=== PATIENT | female | born 1995 | race Caucasian/White ===

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

== ENCOUNTER → 2017-05-14 | Outpatient (CLI) | payer BC | END | disposition home or self-care (01) | LOC: C.PATHSPEC 14:43 | PROVIDERS: ATTEND Physician Assistant | DX: L91.8 Other hypertrophic disorders of the skin (principal) ==

== ENCOUNTER 2018-03-27 14:48 | Emergency (ER) | payer BC, OTHER ==
[~2018-03-27] VITALS: Ht 152.4 cm; Wt 42.9 kg
[2018-03-27] MEDS ORDERED: SODIUM CHLORIDE 0.9% 1000ML 1,000 ML IV STA (15:10)
[2018-03-27 15:18] LABS: BASO % 0.5 %; BASO ABS # 0.04 K/uL (0-0.2); EOS % 4.1 %; EOS ABS # 0.31 K/uL (0-0.5); HEMOGLOBIN 14.9 g/dL (12.0-16.0); IG# 0.01 K/uL (0.00-0.02); LYMPH % 27.5 %; LYMPH ABS # 2.09 K/uL (1.2-3.4); MEAN CELL VOLUME 90.9 fL (80-100); MEAN CORPUSCULAR HEMOGLOBIN 30.8 pg (25-34); MEAN CORPUSCULAR HGB CONC 33.9 g/dl (32-36); MEAN PLATELET VOLUME 11.5 fL (7.4-10.4); MONO % 6.3 %; MONO ABS # 0.48 K/uL (0.11-0.59); NEUT % 61.5 %; NEUT ABS # 4.68 K/uL (1.4-6.5); PLATELET COUNT 188 K/uL (130-400); RED CELL DISTRIBUTION WIDTH CV 12.4 % (11.5-14.5); RED CELL DISTRIBUTION WIDTH SD 41.2 fL (36.4-46.3); WHITE BLOOD COUNT 7.61 K/uL (4.8-10.8)
[2018-03-27 15:38] VITALS: Ht 152.4 cm; Wt 42.9 kg
[2018-03-27 15:47] LABS: ALBUMIN 4.5 gm/dl (3.4-5.0); ALKALINE PHOSPHATASE 57 U/L (45-117); ALT/SGPT 21 U/L (12-78); AST/SGOT 17 U/L (15-37); BLOOD UREA NITROGEN 10 mg/dl (7-18); CALCIUM 9.5 mg/dl (8.5-10.1); CARBON DIOXIDE 26 mmol/L (21-32); CREATININE 0.83 mg/dl (0.60-1.20); GLUCOSE 98 mg/dl (70-99); POTASSIUM 3.1 mmol/L (3.5-5.1); SODIUM 139 mmol/L (136-145); TOTAL PROTEIN 8.5 gm/dl (6.4-8.2)
--- NOTE | 2018-03-27 15:59 | DIAGNOSTIC IMAGING REPORT ---
SINGLE VIEW CHEST CLINICAL HISTORY: Weakness. Change in mental status. FINDINGS: An AP, portable, upright chest radiograph is compared to study dated 09/27/2016. The examination is degraded by portable technique and patient rotation. The cardiomediastinal silhouette is unremarkable. The lungs and pleural spaces are clear. No pneumothorax is seen. The bony thorax is grossly intact. IMPRESSION: No active disease in the chest. Electronically signed by: Que Conroy M.D. 03/27/2018 3:58 PM Dictated Date/Time: 03/27/2018 3:58 PM
[2018-03-27] MEDS ORDERED: POTASSIUM CHLORIDE 10 MEQ TABCR PO STA (16:27)
[2018-03-27] MEDS ORDERED: ONDA4TAB10 SL (16:38)
[2018-03-27] MEDS ORDERED: BIOT1CAP8 PO (16:48)
[2018-03-27 16:58] VITALS: BP 98/74; PULSE 88; TEMP 36.7; O2SAT 100
--- NOTE | 2018-03-27 18:13 | EMERGENCY ROOM VISIT NOTE ---
History Report prepared by Amada: Jeanne Moya Under the Supervision of: Dr. Adam Cowan D.O. First contact with patient: 15:02 Chief Complaint: NAUSEA Stated Complaint: NAUSEA, LIGHT-HEADED, DIZZY History of Present Illness The patient is a 22 year old female who presents to the Emergency Room with complaints of sudden nausea starting 30 minutes ago. 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 She reports that right after she had blurry vision and muffled hearing. She reports that she felt like she was going to pass out so she went to the restroom and called her dad to come get her. The patient states that this has happened to her 5 times before and it was attributed to low blood pressure. The patient notes that she has been eating and drinking normally today. The patient denies vomiting and recent illness. Source of History: patient Onset: 30 minutes ago Position: abdomen Quality: other (nausea) Timing: other (sudden) Associated Symptoms: No vomiting Note: The patient complains of lightheadedness, blurry vision, muffled hearing, and feeling like she was going to pass out. Review of Systems See HPI for pertinent positives & negatives. A total of 10 systems reviewed and were otherwise negative. Past Medical & Surgical Medical Problems: (1) Low BP Family History Patient reports no known family medical history. Social History Smoking Status: Never Smoker Marital Status: single Housing Status: lives with family Occupation Status: [employer] Current/Historical Medications Scheduled Biotin (Biotin), 2 TAB PO DAILY Ondasetron Odt (Zofran Odt), 4 MG SL Q6H Allergies Coded Allergies: Cat Dander (Unverified Allergy, Unknown, ., 03/27/18) Physical Exam Vital Signs Date Time Temp Pulse Resp B/P (MAP) Pulse Ox O2 Delivery O2 Flow Rate FiO2 03/27/18 16:58 36.7 88 20 98/74 100 03/27/18 16:42 88 20 98/74 100 Room Air 03/27/18 15:46 80 96/68 100 81 98/77 85 108/74 03/27/18 15:37 Room Air 100 03/27/18 14:55 36.7 96 18 97/67 97 Room Air Physical Exam GENERAL: Patient is awake, alert, and in no acute distress. Patient is resting comfortably and showing no signs of anxiety EYES: The conjunctivae are clear. The pupils are round and reactive. EARS, NOSE, MOUTH AND THROAT: The nose is without any evidence of any deformity. Mucous membranes are dry. Tongue is midline NECK: The neck is nontender and supple. RESPIRATORY: Normal respiratory effort is noted. There is no evidence of wheezing rhonchi or rales to auscultation. CARDIOVASCULAR: Regular rate and rhythm noted. There no murmurs rubs or gallops normal S1 normal S2 GASTROINTESTINAL: The abdomen is soft. Bowel sounds are present in all quadrants. Abdomen is nontender. MUSCULOSKELETAL/EXTREMITIES: There is no evidence of gross deformity. Full range of motion is noted in the hips and shoulders. SKIN: There is no obvious evidence of any rash. There are no petechiae, pallor or cyanosis noted. NEUROLOGIC: Patient is awake alert and oriented x3. Strength is symmetric. Patellar reflexes are 2+ bilaterally. Medical Decision & Procedures ER Provider Diagnostic Interpretation: Radiology results as stated below per my review and radiologist interpretation: SINGLE VIEW CHEST CLINICAL HISTORY: Weakness. Change in mental status. FINDINGS: An AP, portable, upright chest radiograph is compared to study dated 09/27/2016. The examination is degraded by portable technique and patient rotation. The cardiomediastinal silhouette is unremarkable. The lungs and pleural spaces are clear. No pneumothorax is seen. The bony thorax is grossly intact. IMPRESSION: No active disease in the chest. Electronically signed by: Que Conroy M.D. 03/27/2018 3:58 PM Dictated Date/Time: 03/27/2018 3:58 PM Laboratory Results 03/27/18 15:05 Red Blood Count 4.84, Mean Corpuscular Volume 90.9, Mean Corpuscular Hemoglobin 30.8, Mean Corpuscular Hemoglobin Concent 33.9, Mean Platelet Volume 11.5, Neutrophils (%) (Auto) 61.5, Lymphocytes (%) (Auto) 27.5, Monocytes (%) (Auto) 6.3, Eosinophils (%) (Auto) 4.1, Basophils (%) (Auto) 0.5, Neutrophils # (Auto) 4.68, Lymphocytes # (Auto) 2.09, Monocytes # (Auto) 0.48, Eosinophils # (Auto) 0.31, Basophils # (Auto) 0.04 03/27/18 15:05 Test 03/27/18 15:05 White Blood Count 7.61 K/uL (4.8-10.8) Red Blood Count 4.84 M/uL (4.2-5.4) Hemoglobin 14.9 g/dL (12.0-16.0) Hematocrit 44.0 % (37-47) Mean Corpuscular Volume 90.9 fL (80-100) Mean Corpuscular Hemoglobin 30.8 pg (25-34) Mean Corpuscular Hemoglobin Concent 33.9 g/dl (32-36) Platelet Count 188 K/uL (130-400) Mean Platelet Volume 11.5 fL (7.4-10.4) Neutrophils (%) (Auto) 61.5 % Lymphocytes (%) (Auto) 27.5 % Monocytes (%) (Auto) 6.3 % Eosinophils (%) (Auto) 4.1 % Basophils (%) (Auto) 0.5 % Neutrophils # (Auto) 4.68 K/uL (1.4-6.5) Lymphocytes # (Auto) 2.09 K/uL (1.2-3.4) Monocytes # (Auto) 0.48 K/uL (0.11-0.59) Eosinophils # (Auto) 0.31 K/uL (0-0.5) Basophils # (Auto) 0.04 K/uL (0-0.2) RDW Standard Deviation 41.2 fL (36.4-46.3) RDW Coefficient of Variation 12.4 % (11.5-14.5) Immature Granulocyte % (Auto) 0.1 % Immature Granulocyte # (Auto) 0.01 K/uL (0.00-0.02) Urine Color DK YELLOW Urine Appearance TURBID (CLEAR) Urine pH >= 9.0 (4.5-7.5) Urine Specific [place] 1.023 (1.000-1.030) Urine Protein 1+ (NEG) Urine Glucose (UA) NEG (NEG) Urine Ketones NEG (NEG) Urine Occult Blood 1+ (NEG) Urine Nitrite NEG (NEG) Urine Bilirubin NEG (NEG) Urine Urobilinogen NEG (NEG) Urine Leukocyte Esterase NEG (NEG) Urine WBC (Auto) 1-5 /hpf (0-5) Urine RBC (Auto) 10-30 /hpf (0-4) Urine Hyaline Casts (Auto) 1-5 /lpf (0-5) Urine Epithelial Cells (Auto) >30 /lpf (0-5) Urine Bacteria (Auto) NEG (NEG) Urine Renal Epithelial Cells /lpf (0-5) Anion Gap 8.0 mmol/L (3-11) Est Creatinine Clear Calc Drug Dose 73.2 ml/min Estimated GFR () 117.7 Estimated GFR (Non- 101.5 BUN/Creatinine Ratio 12.0 (10-20) Calcium Level 9.5 mg/dl (8.5-10.1) Magnesium Level 2.2 mg/dl (1.8-2.4) Total Bilirubin 0.5 mg/dl (0.2-1) Direct Bilirubin 0.2 mg/dl (0-0.2) Aspartate Amino Transf (AST/SGOT) 17 U/L (15-37) Alanine Aminotransferase (ALT/SGPT) 21 U/L (12-78) Alkaline Phosphatase 57 U/L (45-117) Troponin I < 0.015 ng/ml (0-0.045) Total Protein 8.5 gm/dl (6.4-8.2) Albumin 4.5 gm/dl (3.4-5.0) Thyroid Stimulating Hormone (TSH) 0.827 uIu/ml (0.300-4.500) Human Chorionic Gonadotropin, Qual NEG (NEG) Laboratory results per my review. Medications Administered Medications (Trade) Dose Ordered Sig/Mare Route Start Time Stop Time Status Last Admin Dose Admin Sodium Chloride 1,000 ml @ 999 mls/hr Q1H1M STAT IV 03/27/18 15:10 03/27/18 16:10 DC 03/27/18 15:10 999 MLS/HR Potassium Chloride (Klor-Con M10) 10 meq NOW STAT PO 03/27/18 16:27 03/27/18 16:28 DC 03/27/18 16:42 10 MEQ ECG Per My Interpretation Indication: nausea Rate (beats per minute): 82 Rhythm: normal sinus Findings: no ectopy, other (no acute ST segments) Comparison ECG Date: no prior available ED Course 1507: The patient was evaluated in room B5. A complete history and physical examination were performed. 1510: Ordered NSS 1000 ml @ 999 mls/hr IV. 1627: Ordered Potassium Chloride 10 meq PO. 1639: Upon reevaluation, the patient is resting comfortably. I discussed the results and treatment plan with her. She verbalized agreement of the treatment plan. The patient was discharged home. Medical Decision Differential diagnosis: Etiologies such as metabolic, infection, hypo/hyperglycemia, electrolyte abnormalities, cardiac sources, intracerebral event, toxicologic, neurologic, as well as others were entertained. Nursing notes reviewed. The patient is a 22-year-old female who presented to the emergency department with near syncope. Had orthostatic symptoms. She was seen previously for similar complaints. No definite cause could be found in the past. She was treated with IV fluids. She had no focal neurologic deficits. On subsequent reevaluation she was feeling much better. I discussed the patient's laboratory and radiographic studies with her. I recommended that she call her primary care physician to schedule a follow-up appointment. I also recommended that she discuss whether or not other testing would be necessary such as echocardiogram and Holter monitoring. Otherwise she was encouraged to return to the emergency department immediately if symptoms change worsen or the need arises. I also recommended that she drink plenty clear liquids and keep herself well-hydrated. Medication Reconcilliation Current Medication List: was personally reviewed by me Blood Pressure Screening Patient's blood pressure: Low blood pressure Blood pressure disposition: Referred to PCP Impression Primary Impression: Near syncope Additional Impressions: Nausea Hypokalemia Scribe Attestation The scribe's documentation has been prepared under my direction and personally reviewed by me in its entirety. I confirm that the note above accurately reflects all work, treatment, procedures, and medical decision making performed by me. Departure Information Dispostion Home / Self-Care Prescriptions Ondasetron Odt (ZOFRAN ODT) 4 Mg Tab 4 MG SL Q6H for Nausea, #10 TAB Prov: Adam Cowan, DO 03/27/18 Referrals No Doctor, Assigned (PCP) Forms HOME CARE DOCUMENTATION FORM, IMPORTANT VISIT INFORMATION Patient Instructions My [facility] Additional Instructions Call your family doctor to schedule a follow-up appointment. You may require further studies such as an echocardiogram and a Holter monitor to further evaluate the cause your symptoms. Drink plenty clear liquids and keep herself well-hydrated. Return to the emergency department immediately if symptoms change worsen or the need arises per Problem Qualifiers
== END 2018-03-27 16:59 | disposition home or self-care (01) ==
LOC: C.EDB 14:49
DX: R55 Syncope and collapse (principal); R11.0 Nausea; E87.6 Hypokalemia